=== PATIENT | female | born 1965 | race Caucasian/White ===

== ENCOUNTER 2017-03-11 14:06 | Emergency (ER) | payer MEDICAID ==
[2017-03-11] MEDS: HYDROCODONE/APAP (5/325) TAB PO (16:43)
== END 2017-03-11 17:48 | disposition home or self-care (01) ==
LOC: FTE 14:06
DX: S43.102A Unspecified dislocation of left acromioclavicular joint, initial encounter (principal); V89.2XXA Person injured in unspecified motor-vehicle accident, traffic, initial encounter
CPT/HCPCS: 72100; 73030; 73050; 99284-25